=== PATIENT | male | born 1965 | race Caucasian/White ===

== ENCOUNTER 2016-12-24 13:19 | Outpatient (CLI) | payer OTHER ==
--- NOTE | 2016-12-24 15:47 | Cat Scan Report ---
CT of the abdomen and pelvis without IV contrast. Oral contrast was used. Findings: There is a subcentimeter hypodensity in the anterior superior aspect of the left lobe of the liver which is otherwise unremarkable. The spleen, pancreas, and gallbladder are normal. The kidneys are normal in size and configuration with no evidence of mass or hydronephrosis. No renal stones are seen. The adrenal glands are unremarkable. There are no pelvic masses or abnormal fluid collections. An umbilical hernia containing fat is present. The diameter of the neck of the hernia is 2.0 cm. No evidence of bowel obstruction is seen. There is no free air. There is no evidence of appendicitis. Impression: Umbilical hernia containing fat. A subcentimeter hepatic hypodensity probably represents a simple cyst.
== END 2016-12-24 13:20 | disposition home or self-care (01) ==
LOC: CT 13:19
PROVIDERS: ATTEND Internal Medicine
DX: K42.9 Umbilical hernia without obstruction or gangrene (principal)
CPT/HCPCS: 74176